=== PATIENT | male | born 1960 | race African-American/Black ===

== ENCOUNTER 2016-10-28 08:31 | Outpatient (CLI) | payer OTHER ==
[2016-10-28 09:18] LABS: Hemoglobin A1c 5.7 % (4.0-6.0)
== END 2016-10-28 08:32 ==
LOC: NAVSJIPCSP 08:31
PROVIDERS: ATTEND Internal Medicine
DX: E78.5 Hyperlipidemia, unspecified (principal); E11.9 Type 2 diabetes mellitus without complications
CPT/HCPCS: 80061; 83036

== ENCOUNTER 2017-06-09 10:45 | Outpatient (CLI) | payer OTHER ==
[2017-06-09 13:18] LABS: Cardiac Risk 4.3 (Less than 4.5)
[2017-06-09 14:07] LABS: Hemoglobin A1c 6.4 % (4.0-6.0)
== END 2017-06-09 10:46 | disposition home or self-care (01) ==
LOC: NAVSJIPCSP 10:45
PROVIDERS: ATTEND Internal Medicine
DX: E78.5 Hyperlipidemia, unspecified (principal); E11.9 Type 2 diabetes mellitus without complications; Z79.899 Other long term (current) drug therapy
CPT/HCPCS: 36415; 80061; 83036

== ENCOUNTER 2019-11-17 10:39 | Outpatient (CLI) | payer OTHER ==
--- NOTE | 2019-11-17 12:03 | RAD ---
RIGHT KNEE 2 VIEWS: Date: 11/17/2019 HISTORY: Acute right knee pain. FINDINGS/IMPRESSION: Degenerative changes are present. No fracture, dislocation, or bony destruction is identified. A join t effusion is noted. POS: [facility]
== END 2019-11-17 10:40 | disposition home or self-care (01) ==
LOC: NAV RAD 10:39
PROVIDERS: ATTEND Internal Medicine
DX: M25.561 Pain in right knee (principal); M17.11 Unilateral primary osteoarthritis, right knee; M25.461 Effusion, right knee